=== PATIENT | female | born 1970 | race Caucasian/White ===

== ENCOUNTER 2024-12-17 17:57 | Emergency (ER) | payer OTHER, SELFPAY ==
[2024-12-17 18:11] VITALS: BP 121/83
[2024-12-17 18:40] LABS: Hematocrit 36.3 % (37.0-47.0); Hemoglobin 12.3 g/dL (12.0-16.0); Mean Corp Hgb Conc. 33.9 g/dL (33.0-37.0); Mean Corpuscular Volume 88.3 fL (81.0-99.0); Nucleated Red Blood Cells % 0 %; Platelet Count 302 10^3/uL (130-400); Red Cell Dist. Width 13.2 % (11.5-14.5)
[2024-12-17 18:59] LABS: ALT (SGPT) 17 U/L (0-35); AST (SGOT) 23 U/L (14-36); Albumin 4.7 g/dl (3.5-5.0); Alkaline Phosphatase 79 U/L (38-126); Blood Urea Nitrogen 11 mg/dl (7-17); Calcium 9.3 mg/dl (8.4-10.2); Carbon Dioxide 26 mmol/L (22-30); Chloride 105 mmol/L (98-107); Glucose 92 mg/dl (70-99); Lipase 310 U/L (23-300); Potassium 4.1 mmol/L (3.5-5.1); Sodium 137 mmol/L (135-145); Total Protein 7.2 g/dl (6.3-8.2); eGFR > 60.00
[2024-12-17 21:45] VITALS: BP 140/67
[2024-12-17 21:48] VITALS: BMI 21.5
[2024-12-17 21:56] LABS: Urine Character Clear (Clear)
[2024-12-17 22:00] VITALS: BP 105/46
--- NOTE | 2024-12-17 22:46 | ED.GENMED ---
ED Provider Triage
<Lemuel Haddad MD, Resident - Last Filed: 12/18/24 00:58>
-
Patient seen by provider in Triage?: Seen in Triage
History of Present Illness
<Lemuel Hadadd MD, Resident - Last Filed: 12/18/24 00:58>
General
Chief Complaint: Abdominal Pain
Source: patient
Exam Limitations: none
Time Seen by Provider: 12/17/24 22:08
Travel History
Have you traveled to any high risk areas for coronavirus over the past 14 days?: No
Do you have any symptoms of coronavirus? Fever > 100 degrees, chills, cough, shortness of breath, sore throat, loss of taste or smell, muscle aches, or headache?: No
History of Present Illness
History of Present Illness:
Moderate to severe, stabbing abdominal pain that starts on the left side and radiates to the right. Has had this pain since a year, and over the past 4 months, the progression of the pain has gotten to the point where its more constant than
intermittent. Associated with mild dyspnea. Recently got a CT scan this past Friday with Tonny HERNANDEZ to screen for diverticulitis which she claims was negative. Is trying to schedule a follow up colonoscopy. Last bowel movement was today, regular,
no blood in stool, no weight loss, no fever, no chills, no vomiting. No history of opiod usage. Former smoker, occasional drinker, no drugs.
Past History
<Lemuel Haddad MD, Resident - Last Filed: 12/18/24 00:58>
Past History
ED Past Medical History: None
Patient has exhibited threatening behavior?: No
Social History
Tobacco: Former smoker
Alcohol: Occasional
Drug: None
Personal:
Living: with family
Review of Systems
<Lemuel Haddad MD, Resident - Last Filed: 12/18/24 00:58>
Review of Systems
All Other Systems: ROS reviewed and negative except as documented in HPI and ROS
Respiratory: Reports trouble breathing
Cardiac: Denies chest pain
: Reports no symptoms
Skin: Denies itching or rash
Neurological: Reports no symptoms
Endocrine: Reports no symptoms
Psychiatric: Reports no symptoms
Phy Exam
<Lemuel Haddad MD, Resident - Last Filed: 12/18/24 00:58>
General Physical Exam
General Presentation: well appearing and no apparent distress
General Skin: warm and dry
General Habitus: normal
General Mental: alert
Cardiovascular Exam
Cardiovascular Exam: regular rate/rhythm, no edema, no gallop, no JVD, no murmur and normal peripheral pulses
Pulmonary Exam
Pulmonary Exam: lungs clear and no respiratory distress
Gastrointestinal Exam
Gastrointestinal Exam: normal bowel sounds, soft, non distended and tender (Right upper quadrant )
Auscultation of Abdomen: normal
Course
<Lemuel Haddad MD, Resident - Last Filed: 12/18/24 00:58>
Orders/Labs/Results
Orders:
Orders
12/17/24 18:22
Complete Blood Count/With Diff Urgent
Comprehensive Metabolic Panel Urgent
Lipase Urgent
12/17/24 21:51
Urinalysis Reflex To Culture Urgent
Date Specimen was Collected: 12/17/24
Time Specimen was Collected: 21:48
12/17/24 22:45
US Abdomen Complete/Upper Urgent
Comment:
Reason For Exam: RUQ abd pain
Abnormal Lab Results
12/17/24
18:22
RBC 4.11 L 10^6/uL
(4.20-5.40)
Hct 36.3 L %
(37.0-47.0)
MPV 10.7 H fL
(7.4-10.4)
Lipase 310 H U/L
(23-300)
12/17/24 18:22
12/17/24 18:22
Vital Signs
Initial and Last Documented VS:
Initial Vital Signs
Temp Pulse Resp BP Pulse Ox
98.0 F 61 16 121/83 98
12/17/24 18:11 12/17/24 18:11 12/17/24 18:11 12/17/24 18:11 12/17/24 18:11
Last Documented Vital Signs
Temp Pulse Resp BP Pulse Ox
98.0 F 63 16 101/59 98
12/17/24 18:11 12/18/24 00:02 12/18/24 00:02 12/18/24 00:02 12/18/24 00:02
<Clifton Gibson MD - Last Filed: 12/18/24 00:50>
Orders/Labs/Results
Orders:
Orders
12/17/24 18:22
Complete Blood Count/With Diff Urgent
Comprehensive Metabolic Panel Urgent
Lipase Urgent
12/17/24 21:51
Urinalysis Reflex To Culture Urgent
Date Specimen was Collected: 12/17/24
Time Specimen was Collected: 21:48
12/17/24 22:45
US Abdomen Complete/Upper Urgent
Comment:
Reason For Exam: RUQ abd pain
Abnormal Lab Results
12/17/24
18:22
RBC 4.11 L 10^6/uL
(4.20-5.40)
Hct 36.3 L %
(37.0-47.0)
MPV 10.7 H fL
(7.4-10.4)
Lipase 310 H U/L
(23-300)
12/17/24 18:22
12/17/24 18:22
Vital Signs
Initial and Last Documented VS:
Initial Vital Signs
Temp Pulse Resp BP Pulse Ox
98.0 F 61 16 121/83 98
12/17/24 18:11 12/17/24 18:11 12/17/24 18:11 12/17/24 18:11 12/17/24 18:11
Last Documented Vital Signs
Temp Pulse Resp BP Pulse Ox
98.0 F 63 16 101/59 98
12/17/24 18:11 12/18/24 00:02 12/18/24 00:02 12/18/24 00:02 12/18/24 00:02
<Lemuel Haddad MD, Resident - Last Filed: 12/18/24 00:58>
MDM/Problems Addressed
Differential Diagnosis Includes:
IBS, Bilary Colic, GERD, Gastroparesis, Renal Colic
MDM/Problems Addressed:
54 year old female who presents with moderate to severe abdominal pain associated with nausea. There is right upper quadrant tenderness to palpation. Ordered U/S of the abdomen right upper quadrant results are pending.
<Lemuel Haddad MD, Resident - Last Filed: 12/18/24 00:58>
*Pulse Oximetry
SaO2: 98
Oxygen Mode of Delivery: Room air
Patient hypoxic: no
*Critical Care Note
Total Time (30-74mins, 75-104mins- exclusive of procedures): Not Applicable
<Lemuel Haddad MD, Resident - Last Filed: 12/18/24 00:58>
Update Note
Update Note:
- Ultrasound showed a 0.6 cm polyp in the fundus of the gallbladder and no evidence of cholecystitis or gallstones
- Will discharge with referral to Dr. Raymond HERNANDEZ for further workup, and Surgery referral with Dr. Ruff as she previously had recommendation to remove gallbladder
- UA is unremarkable
ED Attending Note
<Lemuel Haddad MD, Resident - Last Filed: 12/18/24 00:58>
-
Portions of this chart may have been created with voice recognition software.� Occasional wrong word or��sound alike� substitutions may have occurred due to the inherent limitations of voice recognition software.
<Clifton Gibson MD - Last Filed: 12/18/24 00:50>
ED Attending Note
Patient seen and examined by attending physician: Yes
I performed a history and physical exam of patient and discussed management with resident, I reviewed resident's note and agree with documented findings and plan of care.: Yes
ED Attending Note:
I have seen and evaluated the patient with a [id number] encounter. I have spoken to the resident and involved in the medical history, the physical exam, medical decision making.
Evaluation and management service: agree unless noted differently below.
Results interpretation: agree unless noted differently below.
Focused HPI: 54-year-old female with history as noted presents for evaluation of abdominal pain. Patient reports that this has been an ongoing issue for over a year although more troublesome over the past 3 to 4 months. She reports near daily
symptoms. Recently seems to be worse after meals. She describes a sharp pain in the right upper abdomen which occasionally radiates towards the left abdomen. She says that symptoms today radiate towards the right flank as well. She says she has
had chronic associated nausea. Denied also had associated dry heaving which was the impetus for her ER visit. She denies any change in bowel habits that she reports that she has been regular with daily bowel movements. She denies any fever or
chills. No urinary symptoms. She does note that she is being seen by gastroenterology, had recent CT scan which showed no to account for her symptoms only possible constipation.
Physical exam: Awake and alert not in distress. Vital signs normal. Abdomen soft, mildly tender right upper abdomen and epigastrium. No peritoneal signs.
Medical Decision Makin-year-old female presents for evaluation of abdominal pain as described above. This has been an ongoing issue but tonight also had associated nausea and dry heaving which is unusual. Vitals and exam are as above. Labs
were sent in triage including a CBC and a CMP which showed no clinically significant abnormalities. Lipase marginal, not consistent with acute pancreatitis. Her urinalysis is bland. She had recent CT which was nondiagnostic and I do not think
there is utility in repeating this test at this point in time on an emergent basis based on her full clinical picture. I do think there would be utility in checking an upper abdominal ultrasound as symptoms are concerning for potential biliary
colic and ultrasound would be more sensitive than CT for hepatobiliary issues. Will monitor closely reassess after the above.
Follow-up abdominal ultrasound shows gallbladder polyp but no gallstones or signs of cholecystitis. Unclear clinical significance to gallbladder polyp, patient says that she has been told about this in the past and has been recommended to have her
gallbladder removed. Low suspicion for emergent cause for her pain at this point. She remains comfortable and she says her pain has abated. Could be PUD, gastroparesis, IBS as well. She requested number for tube operator for second opinion
here which we will provide. Will also provide referral to surgeon as she says she was recommended for gallbladder removal in the past. At this point she is clinically stable for discharge for outpatient follow-up.
Discharge Plan
Departure
Patient Disposition: Home (Routine Discharge)
Date of Disposition: 12/18/24
Time of Disposition: 00:48
Patient with high blood pressure during this ER visit?: No
Discharge Problem:
Abdominal pain, Gallbladder polyp
Instructions: Abdominal Pain
Prescriptions:
No Action
No Current Medications
0
Referrals:
Maryann Funez MD [Family Provider, Internal Medicine] - Call in 1-3 days for appt
Josemanuel Ruff MD [Active, Surgical] - Call in 1-3 days for appt
Nereida Andrade MD [Active, Gastroenterology] - Call in 1-3 days for appt
Activity Restrictions/Additional Instructions:
Thank you for visiting the Emergency Department at [facility].
1. Please schedule a follow up appointment as directed. Call first thing tomorrow morning to make an appointment.
2. If indicated, please take your medications as instructed and indicated on discharge paperwork.
3. If any of your symptoms do not improve, or persist, or become more severe within 6-12 hours, please return to the emergency department for further care.
4. Please return to the emergency department if you develop a headache, neck pain/stiffness, fever greater than 100.4F, chest pain, shortness of breath, persistent nausea, vomiting, slurred speech, difficulty walking, numbness/tingling, weakness,
signs of infection or any other symptoms that are worrisome to you.
Please call [phone] if you have any questions.
Interventions
Interventions:
*Risk Screen - Suicide Last Done: 12/17/24 18:11
*General Assessment Last Done: 12/17/24 21:42
*Neglect/Abuse Screening Last Done: 12/17/24 18:11
*ED- Fall Risk Assessment Last Done: 12/17/24 21:42
*ED COVID-19 Vaccine History Last Done: 12/17/24 21:46
[id number] Assessment Last Done: 12/17/24 21:54
Discharge Date and Time
Print Language: TAJIK
[2024-12-17 22:55] VITALS: BP 103/63
[2024-12-18 00:02] VITALS: BP 101/59
== END 2024-12-18 01:00 | disposition home or self-care (01) ==
LOC: EMR 17:57
PROVIDERS: Emergency Medicine; EMERGENCY PHYSICIAN Emergency Medicine; FAMILY PHYSICIAN Internal Medicine
DX: R10.9 Unspecified abdominal pain (principal); K82.4 Cholesterolosis of gallbladder; R06.00 Dyspnea, unspecified; Z87.891 Personal history of nicotine dependence
CPT/HCPCS: 99284; 76700; 80053; 81003; 83690; 85025